=== PATIENT | male | born 1980 | race Two or more races ===

== ENCOUNTER 2022-11-30 13:30 | Emergency (ER) | payer OTHER ==
[~2022-11-30] VITALS: Ht 175.3 cm; Wt 95.3 kg
[2022-11-30] MEDS ORDERED: ZESTRIL10 M1 PO (13:53)
== END 2022-11-30 16:00 | disposition home or self-care (01) ==
LOC: ER 13:30
DX: R07.89 Other chest pain (principal); F45.8 Other somatoform disorders